=== PATIENT | female | born 1980 | race Caucasian/White ===

== ENCOUNTER 2025-02-22 06:47 | Outpatient (CLI) | payer OTHER ==
[2025-02-22 07:36] LABS: BASO % 0.6 % (0.1-1.2); EOS # 0.14 (0.04-0.54); EOS % 2.1 % (0.7-7.0); HEMOGLOBIN 12.1 g/dL (11.2-15.7); LYMPH # 1.91 (1.18-3.74); LYMPH % 29.2 % (19.3-53.1); MEAN CORPUSCULAR HEMOGLOBIN 26.2 pg (25.6-32.2); MONO # 0.45 (0.24-0.82); MONO % 6.9 % (4.7-12.5); NEUT # 3.99 (1.56-6.13); NEUT % 60.9 % (34.0-71.1); PLATELET COUNT 332 K/uL (163-369); RED BLOOD COUNT 4.62 M/uL (3.93-5.22); RED CELL DISTRIBUTION WIDTH 14.6 % (11.6-14.4)
[2025-02-22 09:03] LABS: URIC ACID 3.6 mg/dL (2.5-7.5)
[2025-02-22 09:11] LABS: ALBUMIN 3.7 gm/dL (3.4-5.0); BILIRUBIN TOTAL 0.48 mg/dL (0.3-1.2); CALCIUM 9.3 mg/dL (8.5-10.1); CHOL HDL RATIO 3.9 (0-5.0); CREATININE SERUM 0.81 mg/dL (0.55-1.02); GFR 76.46; GLOBULINA 3.8 G/DL (2.4-3.5); POTASSIUM 4.62 mEq/L (3.5-5.1); TOTAL PROTEIN 7.5 gm/dL (6.4-8.2); TSH 3.12 uIU/mL (0.358-3.74)
[2025-02-22 12:15] LABS: VITAMIN D3 25 HYDROXY 31.21 ng/ml (30-120)
[2025-02-22 15:47] LABS: PH,URINE 5.5 (5.0-8.0); URINE APPEARANCE Clear; URINE BILIRRUBIN Negative (NEGATIVE); URINE BLOOD Negative; URINE COLOR Yellow; URINE GLUCOSE Negative (NEGATIVE); URINE KETONE 15 (NEGATIVE); URINE LEUKOCYTE Negative; URINE NITRATE Negative; URINE PROTEIN Negative (NEGATIVE); URINE UROBILINOGEN 0.2 E.U./dl
[2025-02-22 15:50] LABS: URINE BACTERIA 6.1 uL (0.0-1933); URINE EPITHELIAL CELLS 4.4 uL (0.0-38.8); URINE RBC 16.4 uL (0.0-20.8); URINE WBC 2.5 uL (0.0-23.2)
== END 2025-02-22 07:02 | disposition home or self-care (01) ==
LOC: LAB 06:47
DX: E83.42 Hypomagnesemia (principal); D69.6 Thrombocytopenia, unspecified; M10.00 Idiopathic gout, unspecified site; I11.9 Hypertensive heart disease without heart failure; R73.02 Impaired glucose tolerance (oral); E03.8 Other specified hypothyroidism; N39.0 Urinary tract infection, site not specified; R80.9 Proteinuria, unspecified; N18.1 Chronic kidney disease, stage 1; Z12.11 Encounter for screening for malignant neoplasm of colon; E78.00 Pure hypercholesterolemia, unspecified; E55.9 Vitamin D deficiency, unspecified; N40.0 Benign prostatic hyperplasia without lower urinary tract symptoms; D51.9 Vitamin B12 deficiency anemia, unspecified